=== PATIENT | female | born 1955 | race Caucasian/White ===

== ENCOUNTER 2022-04-22 17:22 | Inpatient (IN) ==
[2022-04-22 18:15] LABS: BILIRUBIN,URINE NEGATIVE (NEGATIVE); BLOOD/HEMOGLOBIN,URINE 2+ (NEGATIVE); GLUCOSE, URINE NEGATIVE (NEGATIVE); KETONES,URINE NEGATIVE (NEGATIVE); LEUKOCYTE ESTERASE ,URINE 3+ (NEGATIVE); NITRITES,URINE NEGATIVE (NEGATIVE); PROTEIN,URINE 2+ (NEGATIVE); UROBILINOGEN,URINE 2+ (NORMAL)
[2022-04-22 18:16] LABS: BASOPHILS % (AUTO) 0.1 % (0.2-1.0); EOSINOPHILS # (AUTO) 0.1 x10^3/uL (0.0-0.2); EOSINOPHILS % (AUTO) 0.9 % (0.9-2.9); HEMATOCRIT 37.7 % (36.0-47.0); HEMOGLOBIN 12.8 g/dL (12.0-16.0); LYMPHOCYTES % (AUTO) 9.3 % (21.0-51.0); MEAN CORPUSCULAR HEMOGLOBIN 28.4 pg (27.0-34.0); MEAN CORPUSCULAR VOLUME 83.6 fL (80.0-100.0); MONOCYTES # (AUTO) 0.7 x10^3/uL (0.3-0.8); MONOCYTES % (AUTO) 6.7 % (0.0-13.0); NEUTROPHILS # (AUTO) 8.5 x10^3/uL (2.2-4.8); RED BLOOD COUNT 4.51 X10^6/uL (3.5-5.4); RED CELL DISTRIBUTION WIDTH 15.2 % (11.6-16.5); WHITE BLOOD COUNT 10.3 X10^3/uL (3.6-10.0)
[2022-04-22 18:24] LABS: APPEARANCE,URINE SLIGHTLY HAZY (CLEAR); COLOR,URINE YELLOW (YELLOW)
[2022-04-22 18:25] LABS: BACTERIA,URINE TRACE /HPF (NEGATIVE); SQUAMOUS EPITHELIAL CELL,UR FEW /HPF (NEGATIVE)
[2022-04-22 18:26] LABS: ALANINE AMINOTRANSFERASE 25 Units/L (12-78); ALBUMIN 3.6 g/dL (3.4-5.0); ALKALINE PHOSPHATASE 63 Units/L (46-116); AMYLASE 35 Units/L (25-115); ASPARTATE AMINO TRANSFERASE 22 Units/L (15-37); BLOOD UREA NITROGEN 11 mg/dL (7-18); CALCIUM 8.8 mg/dL (8.5-10.1); CARBON DIOXIDE 31.8 mmol/L (21-32); CHLORIDE 91 mmol/L (98-107); CREATININE 0.69 mg/dL (0.55-1.02); LIPASE 63 Units/L (73-393); SODIUM 127 mmol/L (136-145); TOTAL PROTEIN 7.3 g/dL (6.4-8.2); eGFR NON BLACK RACES > 60 (>60)
--- NOTE | 2022-04-22 18:59 | ED.ABDFE ---
HPI Time Seen Time Seen by Provider: 04/22/22 18:58 PCP Primary Care Physician: none Complaint Chief Complaint:: pt c/o of aching, bloating and pain in the abd pt had a bowel movement this morning but has been having issues having a bowel movement lately so she took a laxative. pt states the pain comes and goes Self Treatment fo Chief Complaint: laxative, gasx COVID-19 Coronavirus risk:travel/contact w/high risk person: No Has patient experienced Coronavirus symptoms: No Source History Provided: Patient Mode of arrival Mode of Arrival: Ambulatory Timing Onset of Chief Complaint: 04/20/22 PMH PMH Past Medical History: Yes Past Medical History: Diabetes, Hypertension and Hypothyroidism Past Medical History Comment: cholesterol Past Surgical History: Yes Surgical History: Cholecystectomy and Ortho Surgery Past Surgical History Comment: hip Family History History of Family Medical Conditions: Yes Family Medical History: Cancer Social History Does patient currently use any type of tobacco product: No Have you used tobacco products in the last 12 months: No Type of Tobacco Use: None Does any household member use tobacco: No Alcohol Use: None Do you use any recreational Drugs:: No Lives With: Spouse Lives Where: Home Travel Risk Coronavirus risk:travel/contact w/high risk person: No Has patient experienced Coronavirus symptoms: No Infectious screening In the last 2 months have you had wt loss of >10#?: NO Have you had fever, night sweats or hemotysis?: No Have you traveled outside the country in the last 6 months?: No Isolation: Standard PE Vital Signs Vitals: Temperature 98.1 F Pulse Rate 89 Respiratory Rate 20 Blood Pressure 126/58 O2 Sat by Pulse Oximetry 98 ROR Labs Reviewed Result Diagrams: 04/22/22 18:05 04/22/22 18:05 Laboratory: WBC 10.3 X10^3/uL (3.6-10.0) H 04/22/22 18:05 RBC 4.51 X10^6/uL (3.5-5.4) 04/22/22 18:05 Hgb 12.8 g/dL (12.0-16.0) 04/22/22 18:05 Hct 37.7 % (36.0-47.0) 04/22/22 18:05 MCV 83.6 fL (80.0-100.0) 04/22/22 18:05 MCH 28.4 pg (27.0-34.0) 04/22/22 18:05 MCHC 34.0 g/dL (33.0-35.0) 04/22/22 18:05 RDW 15.2 % (11.6-16.5) 04/22/22 18:05 Plt Count 218 X10^3/uL (150.0-450.0) 04/22/22 18:05 MPV 8.0 fL (7.4-11.0) 04/22/22 18:05 Neut % (Auto) 83.0 % (42.0-75.0) H 04/22/22 18:05 Lymph % (Auto) 9.3 % (21.0-51.0) L 04/22/22 18:05 [place] % (Auto) 6.7 % (0.0-13.0) 04/22/22 18:05 Eos % (Auto) 0.9 % (0.9-2.9) 04/22/22 18:05 Baso % (Auto) 0.1 % (0.2-1.0) L 04/22/22 18:05 Neut # (Auto) 8.5 x10^3/uL (2.2-4.8) H 04/22/22 18:05 Lymph # (Auto) 1.0 X10^3/uL (1.3-2.9) L 04/22/22 18:05 [place] # (Auto) 0.7 x10^3/uL (0.3-0.8) 04/22/22 18:05 Eos # (Auto) 0.1 x10^3/uL (0.0-0.2) 04/22/22 18:05 Baso # (Auto) 0.0 X10^3/uL (0.0-0.1) 04/22/22 18:05 Absolute Nucleated RBC 0.0 /100WBC 04/22/22 18:05 Sodium 127 mmol/L (136-145) L 04/22/22 18:05 Corrected Sodium TNP 04/22/22 18:05 Potassium 3.4 mmol/L (3.5-5.1) L 04/22/22 18:05 Chloride 91 mmol/L (98-107) L 04/22/22 18:05 Carbon Dioxide 31.8 mmol/L (21-32) 04/22/22 18:05 BUN 11 mg/dL (7-18) 04/22/22 18:05 Creatinine 0.69 mg/dL (0.55-1.02) 04/22/22 18:05 Est GFR (MDRD) Af Amer > 60 (>60) 04/22/22 18:05 Est GFR (MDRD) Non-Af > 60 (>60) 04/22/22 18:05 Glucose 109 mg/dL (65-99) H 04/22/22 18:05 Calcium 8.8 mg/dL (8.5-10.1) 04/22/22 18:05 Corrected Calcium TNP 04/22/22 18:05 Total Bilirubin 1.10 mg/dL (0.2-1.0) H 04/22/22 18:05 AST 22 Units/L (15-37) 04/22/22 18:05 ALT 25 Units/L (12-78) 04/22/22 18:05 Alkaline Phosphatase 63 Units/L (46-116) 04/22/22 18:05 Total Protein 7.3 g/dL (6.4-8.2) 04/22/22 18:05 Albumin 3.6 g/dL (3.4-5.0) 04/22/22 18:05 Globulin 3.7 g/dL (2.5-4.5) 04/22/22 18:05 Albumin/Globulin Ratio 1.0 Ratio (1.1-2.1) L 04/22/22 18:05 Amylase 35 Units/L (25-115) 04/22/22 18:05 Lipase 63 Units/L (73-393) L 04/22/22 18:05 Specimen Type Clean catch urine 04/22/22 17:59 Urine Color Yellow (YELLOW) 04/22/22 17:59 Urine Appearance Slightly hazy (CLEAR) 04/22/22 17:59 Urine pH 7.0 (5.0 - 8.0) 04/22/22 17:59 Ur Specific [place] 1.010 (1.000-1.030) 04/22/22 17:59 Urine Protein 2+ (NEGATIVE) 04/22/22 17:59 Urine Glucose (UA) Negative (NEGATIVE) 04/22/22 17:59 Urine Ketones Negative (NEGATIVE) 04/22/22 17:59 Urine Blood 2+ (NEGATIVE) 04/22/22 17:59 Urine Nitrite Negative (NEGATIVE) 04/22/22 17:59 Urine Bilirubin Negative (NEGATIVE) 04/22/22 17:59 Urine Urobilinogen 2+ (NORMAL) 04/22/22 17:59 Ur Leukocyte Esterase 3+ (NEGATIVE) 04/22/22 17:59 Urine RBC 5-10 /HPF (0-3) A 04/22/22 17:59 Urine WBC 5-10 /HPF (0-5) A 04/22/22 17:59 Ur Squamous Epith Cells Few /HPF (NEGATIVE) 04/22/22 17:59 Urine Bacteria Trace /HPF (NEGATIVE) 04/22/22 17:59 Ur Culture Indicated? No/not indicated 04/22/22 17:59 Opioid Opioid Risk Tool Age (Rambo box if 16-45): No History of Preadolescent Sexual Abuse: No Total: 0 Total Score Risk Category: Low Risk Copyright: Kadeem HERMAN predicting aberrant behaviors Discharge Plan Discharge Plan Patient Disposition: 09 ADMITTED INPATIENT Condition: Stable Orders to Discharge Patient Discharge Orders: Transfer (Routine); Ordered 04/22/22 Ordered By: CLEOPATRA RODRIGUEZ
--- NOTE | 2022-04-22 19:51 | CT ---
HISTORYc/o of aching, bloating and pain in the abd pt had a bowel movement this morning but has been having issues having a bowel movement lately so she took a laxative.STUDYABDOMEN/PELVIS W/O CONCOMPARISONNoneTECHNIQUEMultiple axial images of the abdomen and pelvis were obtained from the lung bases to the pubic symphysis without the administration of IV contrast. Dose reduction techniques including Automated Exposure Control (AEC) and adjustment of mA and kV were utilized.FINDINGSThe visualized portions of the lung bases are unremarkable . The liver, spleen, pancreas, kidneys, and adrenal glands are unremarkable in their noncontrast CT appearance. The gallbladder is surgically ab. No significant mesenteric lymphadenopathy or stranding can be observed. No free fluid or free air is seen within the abdomen. There is a large anterior abdominal wall hernia containing multiple loops of small bowel. There appear to be some dilated loops in the left upper quadrant proximal to this area with transition within the hernia sac itself to more decompressed lead. These findings are highly concerning for small bowel obstruction and surgical consultation will be needed. Colon demonstrates extensive diverticulosis with no evidence for diverticulitis. The appendix is not definitively identified but there are no secondary signs to suggest appendicitis. The uterus appears to demonstrate what appears to be an IUD however there is right hip prosthesis with streak artifact limiting evaluation please correlate with patient's history. The urinary bladder is grossly unremarkable. The bony structures are grossly intact.IMPRESSIONLarge anterior abdominal wall hernia with findings suggesting small bowel obstruction with apparent transition in the hernia sac surgical evaluation is recommended.Extensive colonic diverticulosis without evidence for diverticulitis.Probable IUD in the uterus as aboveElectronically signed by: TOM SAMPSON (Apr 22, 2022 19:50:04)
[2022-04-22] MEDS ORDERED: NS 1,000 ML IV 1,000 ML ONE (20:25)
[2022-04-22] MEDS: NS 1,000 ML IV 1,000 ML IV SCH (20:58)
[2022-04-22] MEDS ORDERED: ZOFRAN INJ 4 MG VIAL IVP PRN ×2 (23:17)
[2022-04-22 23:46] VITALS: BMI 42.6
[2022-04-22] MEDS: ROCEPHIN VIAL 1 GRAM 1 G in NS 100 ML IV 100 ML IV SCH (23:54)
[2022-04-22] MEDS ORDERED: ZOFRAN INJ 4 MG VIAL ONE (23:57)
[2022-04-23] MEDS: ZOFRAN INJ 4 MG VIAL IVP PRN ×2 (00:28→05:35)
[2022-04-23] MEDS: NS 1,000 ML IV 1,000 ML IV SCH ×3 (05:35→20:11)
[2022-04-23 06:23] LABS: ALANINE AMINOTRANSFERASE 24 Units/L (12-78); ALBUMIN 3.2 g/dL (3.4-5.0); ALKALINE PHOSPHATASE 59 Units/L (46-116); AMYLASE 28 Units/L (25-115); ASPARTATE AMINO TRANSFERASE 24 Units/L (15-37); BLOOD UREA NITROGEN 11 mg/dL (7-18); CALCIUM 8.5 mg/dL (8.5-10.1); CARBON DIOXIDE 28.7 mmol/L (21-32); CHLORIDE 95 mmol/L (98-107); COR CA(FOR HYPOALB) 9.1 mg/dL (8.5-10.1); LIPASE 65 Units/L (73-393); SODIUM 129 mmol/L (136-145); TOTAL PROTEIN 6.7 g/dL (6.4-8.2); eGFR NON BLACK RACES > 60 (>60)
[2022-04-23 06:33] LABS: BASOPHILS % (AUTO) 0.2 % (0.2-1.0); EOSINOPHILS # (AUTO) 0.1 x10^3/uL (0.0-0.2); HEMATOCRIT 37.9 % (36.0-47.0); HEMOGLOBIN 12.8 g/dL (12.0-16.0); LYMPHOCYTES # (AUTO) 1.1 X10^3/uL (1.3-2.9); LYMPHOCYTES % (AUTO) 9.4 % (21.0-51.0); MEAN CORPUSCULAR HEMOGLOBIN 28.1 pg (27.0-34.0); MEAN CORPUSCULAR HGB CONC 33.7 g/dL (33.0-35.0); MEAN CORPUSCULAR VOLUME 83.3 fL (80.0-100.0); MEAN PLATELET VOLUME 8.7 fL (7.4-11.0); MONOCYTES # (AUTO) 0.8 x10^3/uL (0.3-0.8); MONOCYTES % (AUTO) 6.7 % (0.0-13.0); NEUTROPHILS # (AUTO) 9.3 x10^3/uL (2.2-4.8); NEUTROPHILS % (AUTO) 82.7 % (42.0-75.0); RED BLOOD COUNT 4.55 X10^6/uL (3.5-5.4); RED CELL DISTRIBUTION WIDTH 14.9 % (11.6-16.5); WHITE BLOOD COUNT 11.2 X10^3/uL (3.6-10.0)
[2022-04-23] MEDS ORDERED: ZESTRIL TAB 20 MG ONE (08:34)
[2022-04-23] MEDS ORDERED: PATIENT'S HOME MEDICATION (Lisinopril-Hydrochlorothiazide 20-12.5 mg tablet) PO SCH (09:00)
[2022-04-23] MEDS: ALPHAGAN 0.2% OPHTH SOLN OP SCH ×2 (09:30→20:10)
--- NOTE | 2022-04-23 09:43 | RAD ---
HISTORYSBO FOLLOW UP, HERNIASTUDYKUBCOMPARISONCT abdomen and pelvis from 04/22/2022.TECHNIQUEKUB abdomen, 2 images.FINDINGSStatus post cholecystectomy. Status post right hip arthroplasty. Mildly dilated loop of small bowel in the left jana abdomen measuring up to 2.8 cm medial-lateral on image [id number]. No definite pneumatosis, free air or portal venous gas. No suspicious abdominal calcifications. Mirena IUD in situ.IMPRESSIONMildly dilated small bowel suggests low-grade obstruction.Electronically signed by: Musa Delgadillo (Apr 23, 2022 09:42:08)
[2022-04-23] MEDS: ASPIRIN EC 81 MG PO SCH ×2 (10:08→20:12)
[2022-04-23] MEDS: LIPITOR TAB 20 MG PO SCH (10:09)
[2022-04-23] MEDS: SYNTHROID 125 mcg TAB PO SCH (10:09)
[2022-04-23] MEDS: HYDROCHLOROTHIAZIDE 12.5 MG CAP PO SCH (10:10)
[2022-04-23] MEDS: ZESTRIL TAB 20 MG PO SCH (12:02)
[2022-04-23] MEDS: ROCEPHIN VIAL 1 GRAM 1 G in NS 100 ML IV 100 ML IV SCH (20:12)
[2022-04-23] MEDS ORDERED: TYLENOL 325 MG TAB PO PRN (23:40)
[2022-04-24] MEDS: NS 1,000 ML IV 1,000 ML IV SCH (04:57)
[2022-04-24 05:10] LABS: BASOPHILS % (AUTO) 0.4 % (0.2-1.0); EOSINOPHILS # (AUTO) 0.2 x10^3/uL (0.0-0.2); EOSINOPHILS % (AUTO) 3.9 % (0.9-2.9); HEMATOCRIT 34.1 % (36.0-47.0); HEMOGLOBIN 11.5 g/dL (12.0-16.0); LYMPHOCYTES # (AUTO) 1.3 X10^3/uL (1.3-2.9); LYMPHOCYTES % (AUTO) 22.8 % (21.0-51.0); MEAN CORPUSCULAR HGB CONC 33.7 g/dL (33.0-35.0); MEAN CORPUSCULAR VOLUME 83.1 fL (80.0-100.0); MEAN PLATELET VOLUME 8.3 fL (7.4-11.0); MONOCYTES # (AUTO) 0.4 x10^3/uL (0.3-0.8); MONOCYTES % (AUTO) 7.6 % (0.0-13.0); NEUTROPHILS # (AUTO) 3.8 x10^3/uL (2.2-4.8); NEUTROPHILS % (AUTO) 65.3 % (42.0-75.0); WHITE BLOOD COUNT 5.8 X10^3/uL (3.6-10.0)
[2022-04-24 05:24] LABS: ALANINE AMINOTRANSFERASE 21 Units/L (12-78); ALBUMIN 2.7 g/dL (3.4-5.0); ALKALINE PHOSPHATASE 51 Units/L (46-116); ASPARTATE AMINO TRANSFERASE 19 Units/L (15-37); BLOOD UREA NITROGEN 9 mg/dL (7-18); CALCIUM 8.1 mg/dL (8.5-10.1); CARBON DIOXIDE 28.2 mmol/L (21-32); CHLORIDE 100 mmol/L (98-107); COR CA(FOR HYPOALB) 9.1 mg/dL (8.5-10.1); CREATININE 0.57 mg/dL (0.55-1.02); SODIUM 135 mmol/L (136-145); TOTAL PROTEIN 5.8 g/dL (6.4-8.2); eGFR NON BLACK RACES > 60 (>60)
--- NOTE | 2022-04-24 05:24 | RAD ---
HISTORYSBO Relevant Clinical InformationSTUDYKUBCOMPARISONF INDINGSEvaluation of the abdomen demonstrates a normal bowel gas pattern. There is a moderate amount of fecal material throughout the colon. Surgical clips right upper quadrant. There is a radiopaque IUD projected in the midline of the pelvis. Right hip arthroplasty. No pathological soft tissue mass or calcification can be observed. The bony structures are grossly intact.IMPRESSIONNo evidence for acute abdominal pathology identified.Electronically signed by: Curtis Mcgill (Apr 24, 2022 05:23:47)
[2022-04-24 08:05] VITALS: BP 118/56
[2022-04-24] MEDS: SYNTHROID 125 mcg TAB PO SCH (08:26)
[2022-04-24] MEDS ORDERED: ZESTRIL TAB 20 MG ONE (08:26)
[2022-04-24] MEDS: ASPIRIN EC 81 MG PO SCH (08:26)
[2022-04-24] MEDS: HYDROCHLOROTHIAZIDE 12.5 MG CAP PO SCH (08:27)
[2022-04-24] MEDS: ZESTRIL TAB 20 MG PO SCH (08:27)
[2022-04-24] MEDS: LIPITOR TAB 20 MG PO SCH (08:27)
[2022-04-24] MEDS: ALPHAGAN 0.2% OPHTH SOLN OP SCH (08:28)
== END 2022-04-24 12:00 | disposition home or self-care (01) | DRG 389 ==
LOC: ER 17:22 → MED/SURG 22:49
PROVIDERS: ADMIT Obstetrics & Gynecology Obstetrics; ATTEND Obstetrics & Gynecology Obstetrics
DX: R10.84 Generalized abdominal pain; K56.690 Other partial intestinal obstruction; K42.9 Umbilical hernia without obstruction or gangrene; E03.8 Other specified hypothyroidism; R79.89 Other specified abnormal findings of blood chemistry; E66.2 Morbid (severe) obesity with alveolar hypoventilation; I10 Essential (primary) hypertension; R11.2 Nausea with vomiting, unspecified; N39.0 Urinary tract infection, site not specified; E11.65 Type 2 diabetes mellitus with hyperglycemia